=== PATIENT | female | born 1945 | race Caucasian/White ===

== ENCOUNTER 2022-08-07 08:32 | Outpatient (CLI) | payer MEDICARE | END 2022-08-07 08:33 | disposition home or self-care (01) | LOC: NM 08:32 | PROVIDERS: ATTEND Psychiatry & Neurology Neurology | DX: R26.9 Unspecified abnormalities of gait and mobility (principal); G20 Parkinson's disease | CPT/HCPCS: 78803; A9584 ×2 ==